=== PATIENT | male | born 1995 | race Caucasian/White ===

== ENCOUNTER 2024-10-21 16:35 | Emergency (ER) | payer OTHER, SELFPAY ==
[2024-10-21 16:43] VITALS: BP 133/85; PULSE 94; TEMP 36.7; O2SAT 99; BMI 43.9
--- NOTE | 2024-10-21 17:00 | ED_ITS ---
HPI HPI - General Adult General Chief complaint: Headache Stated complaint: HEADACHE & VOMITING Time Seen by Provider: 10/21/24 16:47 Source: patient Mode of arrival: walk-in History of Present Illness HPI narrative: 28 year old male presents to the ED for a right-sided headache, N/V. Onset was yesterday. Denies fever, chills, vision changes, neck pain/stiffness. Reports photophobia. He has hx headaches, but never this bad. He tried OTC medication without relief. Related Data Home Medications ?Medication ?Instructions ?Recorded ?Confirmed brimonidine 0.2 %-timolol 0.5 % 1 drp ophthalmic (eye) BID 10/21/24 10/21/24 eye drops (Combigan) esomeprazole magnesium 40 mg 40 mg PO DAILY 10/21/24 0 10/21/24 capsule,delayed release latanoprost 0.005 % eye drops 1 drp ophthalmic (eye) Q PM 10/21/24 10/21/24 Previous Rx's ?Medication ?Instructions ?Recorded cdmnxaxjtq-sndvdmfmpxmhy-xxuipqah 1 tab PO Q6H PRN desi n #14 tabs 10/21/24 50 mg-325 mg-40 mg tablet ondansetron 4 mg disintegrating 4 mg PO Q8H PRN nausea and 10/21/24 tablet vomiting #10 tabs Allergies Allergy/AdvReac Type Severity Reaction Status Date / Time No Known Drug Allergies Allergy Verified 10/21/24 16:47 Opioid HPI Opioid Management Most Recent Opioid Data: Last Pain Scale 2 Today, 18:06 Last ED Pain Assessment Today, 18:06 Last MAR Pain Assessment Today, 17:14 Review of Systems ROS Constitutional Denies: fever, chills or fatigue Ears, nose, mouth, and throat Denies: throat pain or neck pain Cardiovascular Denies: chest pain Respiratory Denies: shortness of breath Gastrointestinal Reports: nausea and vomiting; Denies: abdominal pain Musculoskeletal Denies: neck pain Integumentary/Breast Denies: rash Neurological Reports: headache; Denies: numbness in extremities, weakness in extremities, dizziness or slurred speech [facility] Medical History (Updated 10/21/24 @ 18:12 by Cely Quiñonez) Glaucoma ?H40.9 - Unspecified glaucoma (ICD-10) Social History Little interest or pleasure in doing things: not at all Feeling down, depressed, or hopeless: not at all Exam Constitutional Vital Signs, click to edit/add: Last Vital Signs Temp 98.0 F 10/21/24 16:43 Pulse 94 H 10/21/24 16:43 Resp 18 10/21/24 16:43 BP 133/85 10/21/24 16:43 Pulse Ox 99 10/21/24 16:43 O2 Del Method Room Air 10/21/24 16:43 Common normals: no apparent distress and oriented x3 General appearance: cooperative; not ill appearing HENCT Common normals: external ears normal and moist oral mucous membranes Nose: external nose normal Mouth: oral and palatal mucosa normal, lip normal and tongue normal Throat: posterior oropharynx normal Eye Common normals: PERRL, EOMs intact bilaterally, conjunctivae normal and no scleral icterus Neck & C-Spine Common normals: supple and no meningeal signs Chest Chest: symmetrical chest wall rise Respiratory Common normals: normal respiratory effort Effort & inspection: able to speak in complete sentences and symmetric chest movement Cardio Common normals: regular rate Neuro Common normals: oriented x3, CN's II-XII intact bilaterally, moves all extremities and no focal motor deficits Sensorium/orientation: awake and alert Speech: speech normal Gait (neuro): normal gait Course Vital Signs Vital signs: Vital Signs Temperature 98.0 F 10/21/24 16:43 Pulse Rate 94 H 10/21/24 16:43 Respiratory Rate 18 10/21/24 16:43 Blood Pressure 133/85 10/21/24 16:43 Pulse Oximetry 99 10/21/24 16:43 Oxygen Delivery Method Room Air 10/21/24 16:43 Temperature 98.0 F 10/21/24 16:43 Pulse Rate 94 H 10/21/24 16:43 Respiratory Rate 18 10/21/24 16:43 Blood Pressure 133/85 10/21/24 16:43 Pulse Oximetry 99 10/21/24 16:43 Oxygen Delivery Method Room Air 10/21/24 16:43 Medical Decision Making MDM Narrative Medical decision making narrative: The patient was given IV fluids, Reglan, Benadryl, Decadron, and Toradol with improvement. He will be discharged home. Prescriptions were provided for Zofran and Fioricet. OARRS was reviewed. Follow up with pcp for a recheck, further evaluation and treatment. Parents were at bedside for a ride home. Medical Records Medical records reviewed: Yes I reviewed the patient's medical records Discharge Plan Discharge Chief Complaint: Headache Clinical Impression: Headache Patient Disposition: Home, Self-Care Time of Disposition Decision: 18:12 Condition: Good Mode of Transportation: Private Vehicle Prescriptions / Home Meds: New swdprxwetm-umxezgndcnqjg-wacp 50-325-40 mg tablet 1 tab PO Q6H PRN (Reason: pain) Qty: 14 0RF ondansetron 4 mg tablet,disintegrating 4 mg PO Q8H PRN (Reason: nausea and vomiting) Qty: 10 0RF No Action esomeprazole magnesium 40 mg capsule,delayed release(DR/EC) 40 mg PO DAILY brimonidine-timolol [Combigan] 0.2-0.5 % drops 1 drp ophthalmic (eye) BID latanoprost 0.005 % drops 1 drp ophthalmic (eye) QPM Print Language: Telugu Instructions: Acute Headache (ED) Additional Instructions: Return to the ER for worsening symptoms. Referrals: Physician,Non-Staff, MD [Physician] - 1 week
[2024-10-21] MEDS: KETOROLAC TROMETHAMINE 30 MG/ML VIAL IVP (17:14)
[2024-10-21] MEDS: METOCLOPRAMIDE HCL 10 MG/2 ML VIAL IVP (17:15)
[2024-10-21] MEDS: DEXAMETHASONE SOD PHOS 10 MG/ML VIAL IV (17:15)
[2024-10-21] MEDS: 0.9 % SODIUM CHLORIDE 1,000 ML 999 ML IV (17:15)
[2024-10-21] MEDS: DIPHENHYDRAMINE HCL 50 MG/ML VIAL 25 MG IVP (17:15)
== END 2024-10-21 18:27 | disposition home or self-care (01) ==
PROVIDERS: Emergency Provider Emergency Medicine; Family Provider Family Medicine
DX: R51.9 Headache, unspecified (principal); R11.2 Nausea with vomiting, unspecified
CPT/HCPCS: 96361; 96374; 96375; 99284; J1100; J1200; J1885; J2765